=== PATIENT | female | born 1960 | race Caucasian/White ===

== ENCOUNTER 2017-01-04 09:09 | Outpatient (CLI) ==
[2013-12-24 00:12] VITALS: BMI 46.1
[2017-01-04 10:09] LABS: FLU INTERNAL QC INTERNAL QC VALID; RAPID FLU A NEGATIVE (NEGATIVE); RAPID FLU B NEGATIVE (NEGATIVE)
== END 2017-01-04 09:10 | disposition home or self-care (01) ==
LOC: LAB 09:09
PROVIDERS: ATTEND Nurse Practitioner Family
DX: J02.9 Acute pharyngitis, unspecified (principal)
CPT/HCPCS: 87651; 87804; 87880

== ENCOUNTER 2017-02-04 08:00 | Outpatient (CLI) ==
[2013-12-24 00:12] VITALS: BMI 46.1
[2017-02-04 08:22] LABS: BASOPHILS # (AUTO) 0.1 K/uL (0-0.2); BASOPHILS % (AUTO) 0.9 % (0.0-3.0); EOSINOPHILS # (AUTO) 0.3 K/ul (0.0-0.7); EOSINOPHILS % (AUTO) 2.9 % (0.0-7.0); HEMATOCRIT 40.4 % (37.0-47.0); HEMOGLOBIN 13.1 g/dl (12.0-16.0); IMMATURE GRANULOCYTE % (AUTO) 0.3 % (0.0-5.0); LYMPHOCYTES # (AUTO) 3.5 K/uL (0.60-3.4); LYMPHOCYTES % (AUTO) 38.2 (10.0-50.0); MEAN CORPUSCULAR HEMOGLOBIN 26.1 pg (27.0-31.0); MEAN CORPUSCULAR HGB CONC 32.4 (31.8-35.4); MEAN CORPUSCULAR VOLUME 80.5 fl (81.0-99.0); MONOCYTES # (AUTO) 0.7 K/uL (0.4-2.0); MONOCYTES % (AUTO) 7.8 (0-10); NEUTROPHILS # (AUTO) 4.6 K/ul (2.0-6.9); NEUTROPHILS % (AUTO) 49.9; PLATELET COUNT 331 10^3/uL (140-440); RED BLOOD COUNT 5.02 10^6/ul (4.20-5.40); WHITE BLOOD COUNT 9.18 K/ul (4.6-10.2)
[2017-02-04 08:55] LABS: ALBUMIN 3.6 g/dL (3.4-5.0); ANION GAP 11.2; BILIRUBIN,TOTAL 0.43 mg/dL (0.00-1.20); BUN/CREATININE RATIO 20.77; CALCIUM 9.2 mg/dL (8.2-10.2); CHOL/HDL RATIO 3.1 (4.5-5.5); CREATININE 0.77 mg/dL (0.60-1.30); POTASSIUM 4.2 mmol/L (3.5-5.10); TOTAL PROTEIN 7.2 g/dL (6.4-8.2)
== END 2017-02-04 08:01 | disposition home or self-care (01) ==
LOC: LAB 08:00
PROVIDERS: ATTEND Nurse Practitioner Family
DX: E11.9 Type 2 diabetes mellitus without complications (principal)
CPT/HCPCS: 36415; 80053; 80061; 83036; 85025

== ENCOUNTER 2017-04-09 09:36 | Emergency (ER) ==
[2017-04-09 09:40] VITALS: BP 153/85; TEMP 97.5; BMI 42.5
--- NOTE | 2017-04-09 09:58 | ED.PDOC ---
General ED Provider: Dr. RYAN PINO JR Chief Complaint: Abdominal Pain Stated Complaint: pain off and on foe 4 days, worse this am. pain to lower abd. nausea [End]4 days 97.5 98 22 94% 153/85 08/11. hysterectomyYes: 9 YEARS AGO, hernia, gallbladder, left hand orif, cyst from head. htn dm. supra pubic pain worse 2 day has had hernia has had hysterectomy"feels like labor pains" no dysuria Time Seen by Physician: 09:58 Mode of Arrival: Walk-In Information Source: Patient Exam Limitations: No limitations [facility] Nursing and Triage Documentation Reviewed and Agree: No Review of Systems - Review Of Systems Constitutional: Reports: No symptoms Eyes: Reports: No symptoms Ears, Nose, Mouth, Throat: Reports: No symptoms Respiratory: Reports: No symptoms Cardiac: Reports: No symptoms GI: Reports: Abdominal pain (sharp crampy suprapubic). Denies: Blood streaked bowels, Constipated, Diarrhea, Difficulty swallowing, Nausea, Poor appetite, Poor fluid intake, Rectal bleeding, Vomiting : Reports: No symptoms Musculoskeletal: Reports: No symptoms Skin: Reports: No symptoms Neurological: Reports: No symptoms Endocrine: Reports: No symptoms Hematologic/Lymphatic: Reports: No symptoms All Other Systems: Other Past Medical History - Past Medical History Endocrine: Reports: DM 2 Cardiovascular: Reports: Hypertension Respiratory: Reports: None Hematological: Reports: None Gastrointestinal: Reports: None Genitourinary: Reports: None Neuro/Psych: Reports: None Musculoskeletal: Reports: None Cancer: Reports: None Last Menstrual Period: none - Surgical History General Surgical History: Reports: Hysterectomy (hysterectomy 9 YEARS AGO), Cholecystectomy, Orthopedic (left hand orif), Hernia Repair, Other (cyst from head) - Family History Family History: Reports: Unknown - Social History Smoking Status: Never smoker Hx Substance Use: No Alcohol Screening: None Physical Exam - Physical Exam Appearance: Well-appearing, Obese Pain Distress: Moderate Eyes: IRINEO, EOMI, Conjunctiva clear ENT: Ears normal, Nose normal, Oropharynx normal Neck: Supple Respiratory: Airway patent, Breath sounds clear, Breath sounds equal, Respirations nonlabored Cardiovascular: RRR, Pulses normal, No rub, No murmur GI/: Soft, No masses, Bowel sounds normal, No Organomegaly, Tender Musculoskeletal: Normal strength, ROM intact, No edema, No calf tenderness Skin: Warm, Dry, Normal color Neurological: Sensation intact, Motor intact, Reflexes intact, Cranial nerves intact, Alert, Oriented Psychiatric: Affect appropriate, Mood appropriate Critical Care Note - Critical Care Note Total Time (mins): 0 Course - Course Hematology/Chemistry: 04/09/17 10:10 04/09/17 10:10 Orders, Labs, Meds: Lab Review 04/09/17 04/09/17 09:55 10:10 WBC 10.02 RBC 4.86 Hgb 13.1 Hct 39.0 MCV 80.2 L MCH 27.0 MCHC 33.6 RDW Coeff of Jose 14.7 Plt Count 350 Immature Gran % (Auto) 0.3 Neut % (Auto) 65.3 Lymph % (Auto) 25.3 [place] % (Auto) 6.9 Eos % (Auto) 1.4 Baso % (Auto) 0.8 Immature Gran # (Auto) 0.0 Neut # 6.5 Lymph # 2.5 [place] # 0.7 Eos # 0.1 Baso # 0.1 Sodium 138 Potassium 3.6 Chloride 102 Carbon Dioxide 26 Anion Gap 13.6 BUN 15 Creatinine 0.80 Estimated GFR (MDRD) 74.00 BUN/Creatinine Ratio 18.75 Glucose 111 H Calcium 9.1 Total Bilirubin 0.47 AST 22 ALT 29 Alkaline Phosphatase 52 Total Protein 7.2 Albumin 3.8 Globulin 3.4 Albumin/Globulin Ratio 1.12 Amylase 37 Lipase 29 Procalcitonin < 0.05 Urine Color Yellow Urine Clarity Clear Urine pH 6.0 Ur Specific [place] 1.020 Urine Protein Negative Urine Glucose (UA) Negative Urine Ketones Negative Urine Blood Trace-intact Urine Nitrite Negative Urine Bilirubin Negative Urine Urobilinogen 0.2 Ur Leukocyte Esterase 2+ Urine Microscopic RBC 0-2 Urine Microscopic WBC 5-10 Ur Squamous Epith Cells 20-30 Orders Category Date Time Status AMYLASE Stat LAB 04/09/17 10:10 Completed CBC W/ AUTO DIFF Stat LAB 04/09/17 10:10 Completed COMPREHENSIVE METABOLIC PANEL Stat LAB 04/09/17 10:10 Completed LIPASE Stat LAB 04/09/17 10:10 Completed PROCALCITONIN Stat LAB 04/09/17 10:10 Completed URINALYSIS C & S IF INDICATED Stat LAB 04/09/17 09:55 Completed URINE CULTURE Routine LAB 04/09/17 10:50 Received Ketorolac Tromethamine [Toradol] MEDS 04/09/17 10:00 Discontinued 60 mg IM ONCE STA Ondansetron HCl/Pf [Zofran 4 mg/2 ml] MEDS 04/09/17 10:00 Discontinued 4 mg IM ONCE STA CT ABDOMEN/PELVIS WO CONTRAST Stat RADS 04/09/17 10:01 Completed Medications Discontinued Medications Generic Name Dose Route Start Last Admin Trade Name Casimiroq PRN Reason Stop Dose Admin Ketorolac Tromethamine 60 mg 04/09/17 10:00 04/09/17 10:13 Toradol IM 04/09/17 10:01 60 mg ONCE STA Administration Ondansetron HCl 4 mg 04/09/17 10:00 04/09/17 10:15 Zofran 4 Mg/2 Ml IM 04/09/17 10:01 4 mg ONCE STA Administration Vital Signs: Temp Pulse Resp BP Pulse Ox 04/09/17 09:36 97.5 F L 98 H 22 153/85 H 94 L Departure - Departure Time of Disposition: 11:16 Disposition: HOME SELF-CARE Discharge Problem: Abdominal pain, Mass of colon UTI (urinary tract infection) Qualifiers: Urinary tract infection type: site unspecified Hematuria presence: with hematuria Qualifier Code: (N39.0) Urinary tract infection, site not specified Instructions: Soft Tissue Mass (ED), Urinary Tract Infection in Women (ED) Condition: Serious Pt referred to PMD for follow-up: Yes Additional Instructions: Mass in sigmoid colon will need biopsy call PMD today for referral take stool softener daily urine infection; macrobid for one week and recheck in 2 weeks soner if any symptoms [place] for pain not controlled by toradol Prescriptions: Hydrocodone Bit/Acetaminophen [[place] 5-325] 1 - 2 tab PO Q6HR PRN #12 tablet PRN Reason: pain Docusate Sodium [Colace] 100 mg PO BID #30 capsule Ketorolac Tromethamine [Toradol] 10 mg PO QID PRN #20 tablet PRN Reason: PAIN Nitrofurantoin Monohyd/M-Cryst [Macrobid] 100 mg PO BID #14 capsule Allergies/Adverse Reactions: Allergies hydrocodone bitartrate [From [place]] Allergy (Mild, Verified 04/09/17 09:40) itching Patient will notify drugstore of new allergy Home Medications: Ambulatory Orders Multivitamin [Multiple Vitamins] 1 each PO DAILY 08/10/14 Triamcinolone Acetonide [Nasacort] 16.9 ml NS DAILY spray 08/10/14 Docusate Sodium [Colace] 100 mg PO BID #30 capsule 04/09/17 Hydrocodone Bit/Acetaminophen [[place] 5-325] 1 - 2 tab PO Q6HR PRN #12 tablet 08/18 Ketorolac Tromethamine [Toradol] 10 mg PO QID PRN #20 tablet 04/09/17 Nitrofurantoin Monohyd/M-Cryst [Macrobid] 100 mg PO BID #14 capsule 04/09/17
[2017-04-09] MEDS ORDERED: ZOFRAN 4 MG/2 ML IM STA (10:00)
[2017-04-09] MEDS ORDERED: TORADOL IM STA (10:00)
[2017-04-09 10:19] LABS: BILIRUBIN,URINE Negative (NEGATIVE); KETONES,URINE Negative (NEGATIVE); LEUKOCYTE ESTERASE ,URINE 2+ (NEGATIVE); NITRITE,URINE Negative (NEGATIVE); PROTEIN,URINE Negative (NEGATIVE); URINE, BLOOD Trace-intact (NEGATIVE)
[2017-04-09 10:23] LABS: ADD URINE MICROSCOPIC YES
[2017-04-09 10:37] LABS: BASOPHILS # (AUTO) 0.1 K/uL (0-0.2); BASOPHILS % (AUTO) 0.8 % (0.0-3.0); EOSINOPHILS # (AUTO) 0.1 K/ul (0.0-0.7); EOSINOPHILS % (AUTO) 1.4 % (0.0-7.0); HEMOGLOBIN 13.1 g/dl (12.0-16.0); IMMATURE GRANULOCYTE % (AUTO) 0.3 % (0.0-5.0); LYMPHOCYTES # (AUTO) 2.5 K/uL (0.60-3.4); LYMPHOCYTES % (AUTO) 25.3 (10.0-50.0); MEAN CORPUSCULAR HGB CONC 33.6 (31.8-35.4); MEAN CORPUSCULAR VOLUME 80.2 fl (81.0-99.0); MONOCYTES # (AUTO) 0.7 K/uL (0.4-2.0); MONOCYTES % (AUTO) 6.9 (0-10); NEUTROPHILS # (AUTO) 6.5 K/ul (2.0-6.9); NEUTROPHILS % (AUTO) 65.3; PLATELET COUNT 350 10^3/uL (140-440); RED BLOOD COUNT 4.86 10^6/ul (4.20-5.40); WHITE BLOOD COUNT 10.02 K/ul (4.6-10.2)
[2017-04-09 10:41] LABS: ALBUMIN 3.8 g/dL (3.4-5.0); ALBUMIN/GLOBULIN RATIO 1.12; ANION GAP 13.6; BILIRUBIN,TOTAL 0.47 mg/dL (0.00-1.20); BUN/CREATININE RATIO 18.75; CALCIUM 9.1 mg/dL (8.2-10.2); CREATININE 0.8 mg/dL (0.60-1.30); POTASSIUM 3.6 mmol/L (3.5-5.10); TOTAL PROTEIN 7.2 g/dL (6.4-8.2)
--- NOTE | 2017-04-09 10:52 | CT ---
EXAM: CT abdomen pelvis without contrast HISTORY: Abdominal pain for 3-4 days with nausea. Patient with history of hysterectomy, cholecyste ctomy and hernia repair COMPARISON: CT abdomen pelvis 02/21/2013 TECHNIQUE: Serial axial images of the abdomen pelvis were performed from the lung bases through the inferior pelvis without contrast. These were viewed in multiple planes. FINDINGS: Lung bases are clear. Evaluation is limited due to lack of contrast. The liver is diffusely low in attenuation with no fo valentin hepatic lesion. The gallbladder has been removed. The adrenal glands are unremarkable. Exophy tic right low attenuation lesion measuring 3.9 cm, with Hounsfield units consistent with a cyst. Th ere is a 0.2 cm nonobstructing right renal stone. There is an exophytic low attenuation lesion of th e left kidney measuring 2 cm in diameter on image 45. This demonstrates indeterminate Hounsfield un its. This has increased in size since 2012. The spleen is unremarkable. The pancreas is unremarkab le. The stomach is unremarkable. The small bowel in the abdomen pelvis is unremarkable. The colon demo nstrates significant thickening of the sigmoid colon as seen on axial image 63. There are few scatt ered diverticuli. There is anterior mesh. Urinary bladder is distended. There is no free fluid or free air. There are few scattered nonenlarged mesenteric, retroperitoneal and pelvic lymph nodes. The osseous structures are unremarkable. IMPRESSION: 1. Main a mass-like thickening of the distal sigmoid colon concerning for neoplasm. Dedicated colo noscopy is recommended to further evaluate. 2. Indeterminate left renal lesion with nonobstructing renal stones and right renal cyst. Dedicated renal ultrasound versus CTA is recommended to further evaluate. 3. Few scattered nonspecific lymph nodes in the abdomen pelvis. 4. Low attenuation lesion in the liver consistent with hepatic steatosis. Unexpected findings: Mass-like thickening of the distal sigmoid colon concerning for neoplasm and d edicated colonoscopy is recommended to further evaluate.
== END 2017-04-09 11:30 | disposition home or self-care (01) ==
LOC: ED 09:36
DX: N39.0 Urinary tract infection, site not specified (principal); K63.89 Other specified diseases of intestine; E11.9 Type 2 diabetes mellitus without complications; I10 Essential (primary) hypertension; R10.30 Lower abdominal pain, unspecified; Z79.899 Other long term (current) drug therapy
CPT/HCPCS: 36415; 80053; 81001; 82150; 83690; 84145; 85025; 87086; 96372; 99283

== ENCOUNTER 2017-04-10 07:55 | Outpatient (CLI) ==
[2017-04-09 09:40] VITALS: BMI 42.5
[2017-04-10 08:30] LABS: BASOPHILS # (AUTO) 0.1 K/uL (0-0.2); BASOPHILS % (AUTO) 0.7 % (0.0-3.0); EOSINOPHILS # (AUTO) 0.1 K/ul (0.0-0.7); EOSINOPHILS % (AUTO) 1.6 % (0.0-7.0); HEMATOCRIT 39.9 % (37.0-47.0); HEMOGLOBIN 12.9 g/dl (12.0-16.0); IMMATURE GRANULOCYTE % (AUTO) 0.2 % (0.0-5.0); LYMPHOCYTES # (AUTO) 2.8 K/uL (0.60-3.4); LYMPHOCYTES % (AUTO) 33.9 (10.0-50.0); MEAN CORPUSCULAR HEMOGLOBIN 26.4 pg (27.0-31.0); MEAN CORPUSCULAR HGB CONC 32.3 (31.8-35.4); MEAN CORPUSCULAR VOLUME 81.8 fl (81.0-99.0); MONOCYTES # (AUTO) 0.6 K/uL (0.4-2.0); MONOCYTES % (AUTO) 6.9 (0-10); NEUTROPHILS # (AUTO) 4.7 K/ul (2.0-6.9); NEUTROPHILS % (AUTO) 56.7; PLATELET COUNT 358 10^3/uL (140-440); RED BLOOD COUNT 4.88 10^6/ul (4.20-5.40); WHITE BLOOD COUNT 8.36 K/ul (4.6-10.2)
[2017-04-10 09:12] LABS: ALBUMIN 3.7 g/dL (3.4-5.0); ALBUMIN/GLOBULIN RATIO 1.09; ANION GAP 12.4; BILIRUBIN,TOTAL 0.36 mg/dL (0.00-1.20); BUN/CREATININE RATIO 24.09; CALCIUM 9.3 mg/dL (8.2-10.2); CREATININE 0.83 mg/dL (0.60-1.30); POTASSIUM 4.4 mmol/L (3.5-5.10); TOTAL PROTEIN 7.1 g/dL (6.4-8.2)
== END 2017-04-10 07:56 | disposition home or self-care (01) ==
LOC: LAB 07:55
PROVIDERS: ATTEND Nurse Practitioner Family
DX: E11.9 Type 2 diabetes mellitus without complications (principal); I10 Essential (primary) hypertension
CPT/HCPCS: 36415; 80053; 80061; 83036; 84443; 85025

== ENCOUNTER 2018-02-20 09:20 | Outpatient (CLI) | END 2018-02-20 09:21 | disposition home or self-care (01) | LOC: LAB 09:20 | PROVIDERS: ATTEND Nurse Practitioner Family | DX: E11.9 Type 2 diabetes mellitus without complications (principal); I10 Essential (primary) hypertension | CPT/HCPCS: 36415; 80053; 80061; 83036; 84443; 85025 ==

== ENCOUNTER 2018-05-11 14:47 | Emergency (ER) ==
[2018-05-11 14:55] VITALS: BP 153/85; TEMP 98.2
[2018-05-11] MEDS: DILAUDID 2 MG/ML SYRINGE IM STA (15:10)
[2018-05-11] MEDS: TORADOL IM STA (15:11)
[2018-05-11] MEDS: ZOFRAN 4 MG/2 ML IM STA (15:11)
[2018-05-11 15:12] VITALS: BMI 44.1
--- NOTE | 2018-05-11 15:59 | CT ---
EXAM: CT lumbar spine without contrast. HISTORY: Back and hip pain after fall 3 weeks prior COMPARISON: CT abdomen pelvis 12/24/2013 and 04/09/2017 TECHNIQUE: Serial axial images of the spine were obtained from the lower thoracic spine through the pelvis without contrast. These were viewed in multiple planes. FINDINGS: Vertebral bodies demonstrate no acute compression fracture or subluxation. There is stable compression deformity at T12 and T11. There is significant narrowing of L5-S1 disc space. There is scattered moderate facet arthropathy. There are few scattered anterior disc osteophytes most pronou nced at L1-L2. There is no abnormal curvature. There is degenerative change of the sacroiliac joints bilaterally. L1-L2: Normal L2-L3: Mild disc space narrowing and facet arthropathy with no central or neural foraminal narrowing. L3-L4: Broad-based disc bulge with facet arthropathy with no central or neural foraminal narrowing. L4-L5: Facet arthropathy and small broad-based disc bulge with no central and mild bilateral neural f oraminal narrowing. L5-S1: Severe disc space narrowing with osteophyte formation and facet arthropathy with bilateral mil d to moderate neural foraminal narrowing. Limited views of the soft tissues are unremarkable. IMPRESSION: 1. No acute compression fracture or subluxation of the lumbosacral spine. 2. Stable compression deformities at T11 and T12. 3. Multilevel scattered degenerative disease of the spine with mild to moderate bilateral neural for aminal narrowing noted L5-S1.
--- NOTE | 2018-05-11 16:04 | CT ---
EXAM: CT of the pelvis without contrast History: Right hip pain. Technique: Multiplanar CT images through the pelvis were obtained without the administration of IV c ontrast Findings: Partially visualized simple right renal cyst. Previous ventral hernia repair. Colonic di verticulosis. No change in the wall thickening of the sigmoid colon. No bladder wall thickening. U terus is not seen. Degenerative changes within the lower lumbar spine. Osteopenia. No acute fractu re or dislocation. Mild to moderate narrowing of bilateral hip joints. Mild narrowing of bilateral hip joints with no significant osteophyte formation. No suspicious lytic or blastic osseous lesions. Surrounding soft tissues demonstrate no acute findings. Impression: 1. No acute osseous abnormality. 2. Mild arthritis of bilateral hip joints. 3. No change in the wall thickening of the sigmoid colon. Recommend correlation with colonoscopy if not recently performed.
--- NOTE | 2018-05-11 16:09 | ED.PDOC ---
General ED Provider: Dr. AMPARO WASHINGTON-ER Chief Complaint: Hip Pain/Injury Stated Complaint: i fell on my hip--2 weeks ago --it still hurts Time Seen by Physician: 14:50 Mode of Arrival: Walk-In Information Source: Patient Exam Limitations: No limitations Primary Care Provider: STEPHENIE [facility]DAME[facility] Nursing and Triage Documentation Reviewed and Agree: Yes Reviewed sepsis parameters & appropriate labs ordered?: Yes System Inflammatory Response Syndrome: Not Applicable Sepsis Protocol: For patient's 13 years and over: Temp is 96.8 and below OR 101 and greater Pulse >90 BPM Resp >20/minute Acutely Altered Mental Status Are patient's symptoms suggestive of a new infection, such as: -Pneumonia -Skin, Soft Tissue -Endocarditis -UTI -Bone, Joint Infection -Implantable Device -Acute Abdominal Infection -Wound Infection -Meningitis -Blood Stream Catheter Infection -Unknown Musculoskeletal Complaint Exam - Hip/Pelvis Complaint/Exam Location of Pain: Reports: Right, Hip Mechanism of Injury: Reports: Trauma Onset/Duration: 2 weeks Symptoms Are: Still present Initial Severity: Mild Current Severity: Moderate Location: Reports: Discrete Character: Reports: Dull, Aching Aggravating: Reports: Movement, Weight bearing Alleviating: Reports: None Associated Signs and Symptoms: Denies: Swelling, Redness, Bruising, Fever, Weakness, Dizziness, Syncope, Abdominal pain, Knee pain Able to Bear Weight: Yes Septic Arthritis Risk Factors: Reports: None Tenderness: Present: Right Range of Motion Limited In: Present: Flexion, Extension, Abduction, Adduction NV Bundle Intact Distal to Injury: Yes Differential Diagnoses: Bursitis, Sciatica Review of Systems - Review Of Systems Constitutional: Reports: No symptoms Eyes: Reports: No symptoms Ears, Nose, Mouth, Throat: Reports: No symptoms Respiratory: Reports: No symptoms Cardiac: Reports: No symptoms GI: Reports: No symptoms : Reports: No symptoms Musculoskeletal: Reports: Joint pain Skin: Reports: No symptoms Neurological: Reports: No symptoms Endocrine: Reports: No symptoms Hematologic/Lymphatic: Reports: No symptoms All Other Systems: Reviewed and Negative Past Medical History - Past Medical History Previously Healthy: No Endocrine: Reports: DM 2 Cardiovascular: Reports: Hypertension Respiratory: Reports: None Hematological: Reports: None Gastrointestinal: Reports: None Genitourinary: Reports: None Neuro/Psych: Reports: None Musculoskeletal: Reports: None Cancer: Reports: None Last Menstrual Period: HYSTERECTOMY - Surgical History General Surgical History: Reports: Hysterectomy (hysterectomy 9 YEARS AGO), Cholecystectomy, Orthopedic (left hand orif), Hernia Repair, Other (cyst from head) - Family History Family History: Reports: Unknown - Social History Smoking Status: Never smoker Hx Substance Use: No Alcohol Screening: None - Immunizations Tetanus Shot up to Date: Yes Physical Exam - Physical Exam Appearance: Well-appearing Pain Distress: Moderate Eyes: IRINEO ENT: Ears normal, Nose normal, Oropharynx normal Neck: Supple Respiratory: Airway patent, Breath sounds clear, Breath sounds equal, Respirations nonlabored Cardiovascular: RRR, Pulses normal, No rub, No murmur GI/: Soft, Nontender, No masses, Bowel sounds normal, No Organomegaly Musculoskeletal: Limited ROM Skin: Warm Neurological: Sensation intact, Motor intact, Reflexes intact, Cranial nerves intact, Alert, Oriented, Focal Deficit Psychiatric: Affect appropriate, Mood appropriate Interpretation - Radiology Interpretation Radiology Interpretation By: Radiologist Radiology Results: Positive Exam Interpreted: CT Scan Critical Care Note - Critical Care Note Total Time (mins): 0 Course - Course Orders, Labs, Meds: Orders Category Date Time Status Hydromorphone HCl/Pf [Dilaudid 2 mg/ml Syringe] MEDS 05/11/18 14:59 Discontinued 2 mg IM ONCE STA Ketorolac Tromethamine [Toradol] MEDS 05/11/18 14:59 Discontinued 60 mg IM ONCE STA Ondansetron HCl/Pf [Zofran 4 mg/2 ml] MEDS 05/11/18 14:59 Discontinued 4 mg IM ONCE STA CT LUMBAR SPINE W/O CONTRAST Stat RADS 05/11/18 15:[address] PELVIS W/O CONTRAST Stat RADS 05/11/18 14:59 Completed Medications Discontinued Medications Generic Name Dose Route Start Last Admin Trade Name Freq PRN Reason Stop Dose Admin Hydromorphone HCl 2 mg 05/11/18 14:59 05/11/18 15:10 Dilaudid 2 Mg/Ml Syringe IM 05/11/18 15:00 2 mg ONCE STA Administration Ketorolac Tromethamine 60 mg 05/11/18 14:59 05/11/18 15:11 Toradol IM 05/11/18 15:00 60 mg ONCE STA Administration Ondansetron HCl 4 mg 05/11/18 14:59 05/11/18 15:11 Zofran 4 Mg/2 Ml IM 05/11/18 15:00 4 mg ONCE STA Administration Vital Signs: Temp Pulse Resp BP Pulse Ox 05/11/18 14:48 98.2 F 111 H 18 153/85 H 95 Departure - Departure Time of Disposition: 16:08 Disposition: HOME SELF-CARE Discharge Problem: Hip pain Sciatica Qualifiers: Laterality: right Qualified Code(s): M54.31 - Sciatica, right side Instructions: Sciatica (ED) Condition: Good Pt referred to PMD for follow-up: Yes IPMP verified?: No Additional Instructions: percocet 5mg q 6hrs prn pain #12--f/u with pcp=--consider ortho referral Allergies/Adverse Reactions: Allergies hydrocodone bitartrate [From [place]] Allergy (Mild, Unverified 05/11/18 14:51) itching Patient will notify drugstore of new allergy Home Medications: Ambulatory Orders Multivitamin [Multiple Vitamins] 1 each PO DAILY 08/10/14 Triamcinolone Acetonide [Nasacort] 16.9 ml NS DAILY spray 08/10/14 Docusate Sodium [Colace] 100 mg PO BID #30 capsule 04/09/17 Disposition Discussed With: Patient, Family
== END 2018-05-11 16:24 | disposition home or self-care (01) ==
LOC: ED 14:47
DX: M54.31 Sciatica, right side (principal); M25.551 Pain in right hip; W19.XXXA Unspecified fall, initial encounter
CPT/HCPCS: 96372; 99283

== ENCOUNTER 2018-05-16 08:47 | Outpatient (CLI) ==
--- NOTE | 2018-05-16 12:58 | MRI ---
EXAM: MRI lumbar spine without IV contrast. DATE: 05/16/2018. HISTORY: Lumbago with sciatica. TECHNIQUE: Sagittal and axial T1W and T2W sequences of the lumbar spine along with sagittal IR and c oronal T2W sequences were obtained using 1.2 Ángela magnet. No IV contrast. COMPARISON: CT L-spine 05/11/2018. CT chest [address] abdomen/pelvis 04/09/2017. FINDINGS: There are four classic [id number] lumbar vertebra (L2 through L4). At the thoracolum bar junction, there is a transitional vertebra with bilateral hypoplastic ribs. Previous chest CT de monstrates 12 thoracic vertebra with classic paired ribs followed by this transitional vertebra. 82 with numbering system utilized on recent CT L-spine, this transitional vertebra will be referred to a s L1 There is no lumbar scoliosis. No acute lumbar fracture, subluxation, osseous malignancy, or pars int erarticularis defect is evident. A 2 mm anterolisthesis of T12 relative to T11 is noted. Chronic sup erior endplate compression fractures of T11 and T12 are redemonstrated. Lumbar vertebra are normal i n height. T2W/T1W bone marrow signal is somewhat heterogeneous due to areas of fatty infiltration an d degenerative endplate changes moderate T10-11, minor L3-4, minor L4-5, and marked L5-S1 disc space narrowing is detected. No acute sacral fracture or stress reaction is evident. SI joints are unrema rkable. Conus medullaris terminates at L2. Visible spinal cord is normal. No retroperitoneal lymphadenopathy, paraspinal mass, or aortic aneurysm is detected. Left renal vein courses posterior to the aorta (normal variation). Psoas muscles are normal. There is minor bilate ral posterior paraspinal muscle atrophy. Right lobe liver is greater than 15 cm in length. Hepatic steatosis is apparent on the prior CT scan. No hepatic neoplasm is identified. Visible portions of the spleen and left kidney are normal. Right kidney reveals a T2W bright lesion (4.2 cm cc x 10.4 cm transverse) in the mid pole cortex, which corresponds with water density (HU = 10) cyst on the April 20 CT scan. Right adrenal jossue slight thickening ( 6 x 7 mm) with T2W/T1W intermediate signal does n ot have corresponding on the recent CT L-spine. Left adrenal body/jossue fullness (14 x 10.6 mm) corre sponds with low density lesion (HU = 11) recent CT scan.. CBD is approximately 9.4 mm diameter, with out intraluminal stones or distinct mass. Gallbladder is not visible. No pancreatic abnormality is d etected. A few sigmoid colon diverticuli are observed. Segmental analysis: T10-11: Minor posterior disc bulge does not cause cord compression, central stenosis or foraminal st enosis. T11-12: Minor anterolisthesis of T12, broad posterior disc/osteophyte complex, and mild facet arthro jeremy cause mild central canal stenosis and marked bilateral foraminal stenoses. T12-L1: Minor left foraminal to far lateral disc bulge/protrusion (3 mm AP x 14 mm transverse) cause s slight left foraminal narrowing. No central canal stenosis. L1-2: Normal. L2-3: Minimal posterior to left foraminal disc bulge and minor facet arthropathy cause minor/mild le ft foraminal narrowing. No central canal stenosis. L3-4: Small concentric disc bulge and minor facet disease cause mild left foraminal narrowing. No c entral canal stenosis. L4-5: Small concentric disc bulge, minor right facet arthropathy, and mild left facet arthropathy ca use triangulation of the canal and mild/moderate bilateral foraminal stenoses. L5-S1: Small spondylotic ridges at L5 and S1 endplates and minor facet arthropathy cause moderate ri ght and mild left foraminal stenoses. No central canal stenosis. IMPRESSIONS: 1. Lumbar spine minor spondylosis, mild facet arthropathy, and mild DDD. 2. Mild central canal stenosis at T11-12. Triangulation of canal at L4-5. 3. Multilevel foraminal stenoses, especially bilateral T11-12. 4. Benign bone marrow fatty infiltration. 5. Old compression fractures of T11 and T12. 6. Right kidney probable benign exophytic cyst. 7. Mild hepatomegaly due to hepatic steatosis. 8. Left adrenal lesion consistent with adenoma. 9. Sigmoid colon diverticulosis.
== END 2018-05-16 08:48 | disposition home or self-care (01) ==
LOC: RAD 08:47
PROVIDERS: ATTEND Nurse Practitioner Family
DX: M54.40 Lumbago with sciatica, unspecified side (principal); M54.5 Low back pain; G89.29 Other chronic pain; M51.36 Other intervertebral disc degeneration, lumbar region; M99.83 Other biomechanical lesions of lumbar region

== ENCOUNTER 2018-05-27 10:20 | Outpatient (CLI) | END 2018-05-27 10:21 | disposition home or self-care (01) | LOC: RHC-LAB 10:20 | PROVIDERS: ATTEND Nurse Practitioner Family | DX: E11.9 Type 2 diabetes mellitus without complications (principal); I10 Essential (primary) hypertension | CPT/HCPCS: 36415; 80053; 83036 ==

== ENCOUNTER 2018-07-09 09:53 | Outpatient (CLI) ==
--- NOTE | 2018-07-09 11:01 | DI ---
EXAM: Six views of the cervical spine. History: Cervical spondylosis. Findings: Straightening of the normal curvature of the cervical spine. No prevertebral soft tissue swelling. Predental space is not widened. No acute fracture or subluxation. Moderate to severe dis c space narrowing at C5-6 and C6-7 with endplate sclerosis and osteophyte formation. The oblique winsome ges demonstrate multilevel bilateral bony neural foraminal narrowing secondary to uncovertebral and f acet hypertrophy appears most significant on the right at C3-4 and C4-5. Impression: 1. No acute osseous abnormality of the cervical spine. 2. Degenerative changes.
--- NOTE | 2018-07-09 11:15 | DI ---
EXAM: Two views of the right hip. History: Right hip pain. Findings: No acute fracture or dislocation. Right hip joint space is preserved. No abnormal calcif ications or radiopaque foreign bodies. Impression: No acute osseous abnormality and no degenerative joint disease of the right hip.
== END 2018-07-09 09:54 | disposition home or self-care (01) ==
LOC: RAD 09:53
PROVIDERS: ATTEND Pain Medicine Interventional Pain Medicine
DX: M47.812 Spondylosis without myelopathy or radiculopathy, cervical region (principal); M25.551 Pain in right hip; M16.11 Unilateral primary osteoarthritis, right hip; Z68.41 Body mass index [BMI] 40.0-44.9, adult

== ENCOUNTER 2018-09-02 15:49 | Outpatient (CLI) | END 2018-09-02 15:50 | disposition home or self-care (01) | LOC: RHC-LAB 15:49 | PROVIDERS: ATTEND Nurse Practitioner Family | DX: E11.9 Type 2 diabetes mellitus without complications (principal); I10 Essential (primary) hypertension | CPT/HCPCS: 36415; 80053; 83036 ==

== ENCOUNTER 2018-12-01 10:02 | Outpatient (CLI) | END 2018-12-01 10:03 | disposition home or self-care (01) | LOC: RHC-LAB 10:02 | PROVIDERS: ATTEND Nurse Practitioner Family | DX: I10 Essential (primary) hypertension (principal); E11.9 Type 2 diabetes mellitus without complications | CPT/HCPCS: 36415; 80053; 83036; 85025 ==

== ENCOUNTER 2018-12-03 15:36 | Outpatient (CLI) | END 2018-12-03 15:37 | disposition home or self-care (01) | LOC: CAR 15:36 | PROVIDERS: ATTEND Nurse Practitioner Family | DX: R00.0 Tachycardia, unspecified (principal) | CPT/HCPCS: 93005; 93010 ==

== ENCOUNTER 2018-12-17 08:23 | Outpatient (CLI) ==
--- NOTE | 2018-12-17 09:09 | MAMMO ---
EXAM: Bilateral digital screening mammogram (2-D and 3-D) History: Screening Comparison: None available. Findings: MLO and CC views of bilateral breasts demonstrate scattered fibroglandular breast parenchy ma. CAD was reviewed by the radiologist. Tomosynthesis was performed. Biopsy clips seen within the right breast. Right subareolar asymmetry. A cluster of nodular densities is seen within the upper- outer quadrant of the right breast posterior depth. Subareolar left breast mass and asymmetry. No s uspicious microcalcifications. Impression: Indeterminate bilateral breast asymmetries and nodules as described above. Recommend fu rther evaluation with spot compression views and possible ultrasound. BIRADS 0, incomplete
== END 2018-12-17 08:24 | disposition home or self-care (01) ==
LOC: RAD 08:23
PROVIDERS: ATTEND Nurse Practitioner Family
DX: Z12.31 Encounter for screening mammogram for malignant neoplasm of breast (principal)

== ENCOUNTER 2018-12-24 09:12 | Outpatient (CLI) ==
--- NOTE | 2018-12-24 17:53 | US ---
EXAM: Digital diagnostic mammogram and bilateral ultrasound HISTORY: Bilateral callback COMPARISON: 12/17/2018 FINDINGS: Mammogram: Spot compression CC and MLO views right and left breast were performed. Tomosynthesis was performed. Computer aided detection utilized. There is asymmetry in the right retroareolar breast. There are two areas of asymmetry in the right upper outer quadrant breast posterior depth. There is a mass in the left retroareolar breast with internal calcifications. A previously seen left retroareolar asym metry disperses on spot compression imaging. Ultrasound: Right: There is mild ductal prominence in the retroareolar region.821 A region measured by the tech nologist in retroauricular region was evaluated on real time examination and there is mild ductal pro minence in this region with no mass in this region. There is no sonographic correlate to the asymmet ezequiel in the right upper outer quadrant breast. A normal appearing lymph node is seen. Left: There is a hypoechoic mass in the left retroareolar breast with slightly angulated margins in several internal calcifications, measuring 1.0 x 0.8 x 1.0 cm. IMPRESSION: 1. Left breast mass. This finding is suspicious. Tissue sampling is recommended. This would be av ailable to ultrasound-guided biopsy. BIRADS category 4, suspisious 2. Right breast retroareolar asymmetry with mild ductal prominence. This finding is probably benign . Diagnostic mammogram and ultrasound recommended in 6 months to ensure stability. BIRADS category 3, probably benign 3. Right breast mammographic asymmetry without sonographic correlate. This finding is probably chito gn. Diagnostic mammogram recommended 6 months to ensure stability. BIRADS category 3, probably chito gn BIRADS category 4, suspicious
== END 2018-12-24 09:13 | disposition home or self-care (01) ==
LOC: RAD 09:12
PROVIDERS: ATTEND Nurse Practitioner Family
DX: N63.0 Unspecified lump in unspecified breast (principal); R92.8 Other abnormal and inconclusive findings on diagnostic imaging of breast

== ENCOUNTER 2019-03-18 09:17 | Outpatient (CLI) | END 2019-03-18 09:18 | disposition home or self-care (01) | LOC: RHC-LAB 09:17 | PROVIDERS: ATTEND Nurse Practitioner Family | DX: E11.9 Type 2 diabetes mellitus without complications (principal); I10 Essential (primary) hypertension; R00.0 Tachycardia, unspecified | CPT/HCPCS: 36415; 80053; 80061; 83036; 84443 ==